=== PATIENT | female | born 1950 | race Caucasian/White ===

== ENCOUNTER 2018-05-06 18:13 | Emergency (ER) | payer BC, OTHER ==
[~2018-05-06] VITALS: Ht 157.5 cm; Wt 59.0 kg
[2018-05-06] MEDS ORDERED: LIPITOR PO (18:30)
[2018-05-06] MEDS ORDERED: LEVOTHYROXINE PO (18:30)
--- NOTE | 2018-05-06 18:54 | NUR ---
MSE COMPLETED, PT D/C'D HOME, ACI/RX X1 GIVEN. PT AMBULATED W/O DIFF/TOOK ALL BELONGINGS.
[2018-05-06 18:56] VITALS: BP 122/60
== END 2018-05-06 18:57 | disposition home or self-care (01) ==
LOC: ER 18:16
DX: S50.861A Insect bite (nonvenomous) of right forearm, initial encounter (principal); E78.5 Hyperlipidemia, unspecified; E03.9 Hypothyroidism, unspecified; Z88.2 Allergy status to sulfonamides; W57.XXXA Bitten or stung by nonvenomous insect and other nonvenomous arthropods, initial encounter; Y93.89 Activity, other specified; Y92.89 Other specified places as the place of occurrence of the external cause; Y99.8 Other external cause status
CPT/HCPCS: 99283; A4663